=== PATIENT | female | born 2000 | race Caucasian/White ===

== ENCOUNTER 2021-02-11 14:36 | Outpatient (CLI) | payer MEDICAID ==
[~2021-02-11] VITALS: Ht 165.1 cm; Wt 70.5 kg
[2021-02-11 14:51] VITALS: BP 137/89
[2021-02-11 15:03] LABS: BASOPHILS % (AUTO) 0 % (0-1); EOSINOPHILS % (AUTO) 0 % (1-7); LYMPHOCYTES % (AUTO) 19 % (22-44); MEAN CORPUSCULAR HEMOGLOBIN 30.7 pg (27.0-34.8); MEAN CORPUSCULAR HGB CONC 34.2 g/dL (32.4-35.8); MEAN PLATELET VOLUME 10.1 fL (7.4-10.4); MONOCYTES % (AUTO) 8 % (2-9); NEUTROPHILS % (AUTO) 72 % (42-75); PLATELET COUNT 191 x10^3/uL (130-400); RED BLOOD COUNT 3.65 x10^6/uL (3.82-5.3); RED CELL DISTRIBUTION WIDTH 12.7 % (9.6-15.2)
[2021-02-11 15:06] LABS: MD NO
[2021-02-11 15:14] LABS: ALANINE AMINOTRANSFERASE 11 U/L (12-78); ALBUMIN 2.4 g/dL (3.4-5.0); ANION GAP 7 mmol/L (5-15); CALCIUM 8.9 mg/dL (8.5-10.1); CHLORIDE 109 mmol/L (98-107); CREATININE 0.61 mg/dL (0.55-1.02)
[2021-02-11 15:16] LABS: ALKALINE PHOSPHATASE 151 U/L (45-117); BILIRUBIN,TOTAL 0.3 mg/dL (0.2-1.0)
[2021-02-11 15:48] LABS: MICROSCOPIC INDICATED
== END 2021-02-11 16:30 | disposition home or self-care (01) ==
LOC: LDOP 14:36
PROVIDERS: ATTEND Student in an Organized Health Care Education/Training Program
DX: O13.3 Gestational [pregnancy-induced] hypertension without significant proteinuria, third trimester (principal); Z3A.39 39 weeks gestation of pregnancy
CPT/HCPCS: 36415; 80053; 81001; 82570; 84156; 84550; 85025

== ENCOUNTER 2021-02-13 16:27 | Inpatient (IN) | payer MEDICAID ==
[~2021-02-13] VITALS: Ht 165.1 cm; Wt 68.0 kg
[2021-02-13] MEDS ORDERED: NEWBORN KIT ONE (20:01)
[2021-02-14] MEDS ORDERED: TERBUTALINE 1 MG/ML, 1ML IVPush PRN (04:00)
[2021-02-14] MEDS ORDERED: D5%-LACTATED RINGERS 1,000 ML IV SCH (04:00)
[2021-02-14] MEDS ORDERED: FENTANYL PF 100 MCG/2ML IV PRN (04:00)
[2021-02-14] MEDS ORDERED: OXYTOCIN 30U/ 0.9% NaCL 500ML 500 ML IV ONE (04:00)
[2021-02-14] MEDS ORDERED: OXYTOCIN 30U/ 0.9% NaCL 500ML 500 ML IV PRN (04:00)
[2021-02-14] MEDS ORDERED: CALCIUM CARBONATE 500 MG TAB.CHEW PO PRN (04:00)
[2021-02-14] MEDS ORDERED: ONDANSETRON 2MG/ML, 2ML IVPush PRN ×2 (04:00→06:00)
[2021-02-14] MEDS ORDERED: TERBUTALINE 1 MG/ML, 1ML SQ PRN (04:00)
[2021-02-14] MEDS ORDERED: FENTANYL PF 100 MCG/2ML IVPush PRN (04:00)
[2021-02-14 04:19] LABS: BASOPHILS % (AUTO) 0 % (0-1); EOSINOPHILS % (AUTO) 1 % (1-7); LYMPHOCYTES % (AUTO) 28 % (22-44); MEAN CORPUSCULAR HEMOGLOBIN 30.6 pg (27.0-34.8); MEAN CORPUSCULAR HGB CONC 34.1 g/dL (32.4-35.8); MEAN PLATELET VOLUME 10.2 fL (7.4-10.4); MONOCYTES % (AUTO) 8 % (2-9); NEUTROPHILS % (AUTO) 64 % (42-75); PLATELET COUNT 183 x10^3/uL (130-400); RED BLOOD COUNT 3.67 x10^6/uL (3.82-5.3); RED CELL DISTRIBUTION WIDTH 12.7 % (9.6-15.2)
[2021-02-14] MEDS ORDERED: OXYTOCIN 30U/ 0.9% NaCL 500ML 500 ML ONE (04:24)
[2021-02-14 04:25] LABS: MD NO
[2021-02-14] MEDS ORDERED: PLEASE ENTER HEIGHT AND WEIGHT MC SCH (04:30)
[2021-02-14] MEDS: LACTATED RINGERS 1,000 ML IV SCH ×4 (04:35→22:00)
[2021-02-14 04:37] LABS: ALBUMIN 2.1 g/dL (3.4-5.0); ANION GAP 6 mmol/L (5-15); CHLORIDE 110 mmol/L (98-107)
[2021-02-14 04:40] LABS: ALANINE AMINOTRANSFERASE 13 U/L (12-78); ALKALINE PHOSPHATASE 149 U/L (45-117); BILIRUBIN,TOTAL 0.2 mg/dL (0.2-1.0); CREATININE 0.55 mg/dL (0.55-1.02); TOTAL PROTEIN 5.4 g/dL (6.4-8.2)
[2021-02-14] MEDS ORDERED: BUPIVACAINE 0.25% ONE (05:13)
[2021-02-14] MEDS ORDERED: FENTANYL/BUPIV./NS/PF 250 ML EPIDCONT ONE (05:13)
[2021-02-14] MEDS ORDERED: FENTANYL/BUPIV./NS/PF 250 ML EPIDCONT SCH (06:00)
[2021-02-14] MEDS ORDERED: NALOXONE 0.4 MG/ML, 1ML IVPush PRN (06:00)
[2021-02-14] MEDS ORDERED: LACTATED RINGERS 1,000 ML IVBOLUS PRN (06:00)
[2021-02-14] MEDS ORDERED: EPHEDRINE 50 MG/ML, 1ML IVPush PRN (06:00)
[2021-02-14] MEDS ORDERED: DIPHENHYDRAMINE 50 MG/ML, 1ML IVPush PRN (06:00)
[2021-02-14] MEDS ORDERED: LIDOCAINE 1%, 20ML ONE (15:11)
[2021-02-14] MEDS ORDERED: MISOPROSTOL 200 MCG TABLET ONE (15:12)
[2021-02-14] MEDS ORDERED: ACETAMINOPHEN 325 MG TABLET PO PRN ×2 (16:30→23:00)
[2021-02-14] MEDS ORDERED: ONDANSETRON 2MG/ML, 2ML IV PRN (16:30)
[2021-02-14] MEDS ORDERED: MISOPROSTOL 200 MCG TABLET PR PRN (16:30)
[2021-02-14] MEDS ORDERED: OXYcodone IR 5MG TABLET PO PRN (16:30)
[2021-02-14] MEDS ORDERED: SIMETHICONE 80 MG CHEW TAB PO PRN (16:30)
[2021-02-14 20:20] VITALS: BP 159/99
[2021-02-14 21:13] VITALS: BP 165/107
[2021-02-14] MEDS: LABETALOL 100 MG TABLET PO SCH (21:13)
[2021-02-14] MEDS: DOCUSATE 100 MG CAPSULE PO PRN (21:13)
[2021-02-14] MEDS: IBUPROFEN 800 MG TABLET PO PRN (21:33)
[2021-02-14 22:00] VITALS: BP 152/95
[2021-02-14] MEDS: OXYTOCIN 30U/ 0.9% NaCL 500ML 500 ML IV SCH (22:16)
[2021-02-14] MEDS: niFEDipine ER 30 MG TABLET.ER PO SCH (23:08)
[2021-02-15] VITALS (7 sets, daily range): BP systolic 129–151; BP diastolic 83–99
[2021-02-15 01:16] LABS: BASOPHILS % (AUTO) 0 % (0-1); EOSINOPHILS % (AUTO) 0 % (1-7); LYMPHOCYTES % (AUTO) 12 % (22-44); MEAN CORPUSCULAR HEMOGLOBIN 30.7 pg (27.0-34.8); MEAN CORPUSCULAR HGB CONC 34.4 g/dL (32.4-35.8); MEAN PLATELET VOLUME 10.2 fL (7.4-10.4); MONOCYTES % (AUTO) 7 % (2-9); NEUTROPHILS % (AUTO) 81 % (42-75); PLATELET COUNT 141 x10^3/uL (130-400); RED BLOOD COUNT 3.22 x10^6/uL (3.82-5.3); RED CELL DISTRIBUTION WIDTH 12.9 % (9.6-15.2)
[2021-02-15 01:22] LABS: MD NO
[2021-02-15] MEDS: OXYTOCIN 30U/ 0.9% NaCL 500ML 500 ML IV SCH ×4 (02:30→22:08)
[2021-02-15] MEDS: LACTATED RINGERS 1,000 ML IV SCH ×4 (06:00→22:08)
[2021-02-15] MEDS: PRENATAL VIT/IRON/FA 1 EACH TABLET PO SCH (09:00)
[2021-02-15] MEDS: IBUPROFEN 800 MG TABLET PO PRN ×2 (09:58→18:46)
[2021-02-15] MEDS: LABETALOL 100 MG TABLET PO SCH ×2 (09:59→20:59)
[2021-02-15] MEDS: niFEDipine ER 30 MG TABLET.ER PO SCH (20:59)
[2021-02-15] MEDS ORDERED: niFEDipine ER 30 MG TABLET.ER PO SCH (21:00)
[2021-02-16 00:15] VITALS: BP 125/85
[2021-02-16] MEDS: IBUPROFEN 800 MG TABLET PO PRN (02:59)
[2021-02-16 03:47] VITALS: BP 146/95
[2021-02-16 06:33] VITALS: BP 137/87
[2021-02-16] MEDS: PRENATAL VIT/IRON/FA 1 EACH TABLET PO SCH (08:45)
[2021-02-16] MEDS: DOCUSATE 100 MG CAPSULE PO PRN (08:45)
[2021-02-16] MEDS: LABETALOL 100 MG TABLET PO SCH (08:46)
[2021-02-16] MEDS ORDERED: IBUP-1222 PO (10:56)
[2021-02-16] MEDS ORDERED: NIFE30TA2 PO (10:56)
[2021-02-16] MEDS ORDERED: LABE100T6 PO (10:57)
== END 2021-02-16 12:30 | disposition home or self-care (01) | DRG 560 ==
LOC: LDIP 19:52 → 2NW 02-14 20:00
PROVIDERS: ADMIT Student in an Organized Health Care Education/Training Program; ATTEND Student in an Organized Health Care Education/Training Program
PROC: 10E0XZZ Delivery of Products of Conception, External Approach (ICD-10-PCS; principal; 2021-02-14)
PROC: 3E033VJ Introduction of Other Hormone into Peripheral Vein, Percutaneous Approach (ICD-10-PCS; 2021-02-14)
PROC: 3E0R3BZ Introduction of Anesthetic Agent into Spinal Canal, Percutaneous Approach (ICD-10-PCS; 2021-02-14)
PROC: 00HU33Z Insertion of Infusion Device into Spinal Canal, Percutaneous Approach (ICD-10-PCS; 2021-02-14)
DX: O14.94 Unspecified pre-eclampsia, complicating childbirth (principal); Z37.0 Single live birth; Z3A.39 39 weeks gestation of pregnancy; Z80.3 Family history of malignant neoplasm of breast; Z82.49 Family history of ischemic heart disease and other diseases of the circulatory system; Z20.822 Contact with and (suspected) exposure to COVID-19
CPT/HCPCS: 36415; 80053; 84550; 85025; 86592; 86850; 86900; 87635; G0378; J2405; J2590; J7120; J7121